=== PATIENT | male | born 1995 | race Caucasian/White ===

== ENCOUNTER 2017-11-28 21:58 | Emergency (ER) | payer OTHER ==
[~2017-11-28] VITALS: Ht 182.9 cm; Wt 69.0 kg
[2017-11-28] MEDS ORDERED: FIORICET 50-301 EAC1 PO (23:22)
[2017-11-28 23:26] VITALS: BP 122/67
== END 2017-11-28 23:27 | disposition home or self-care (01) ==
LOC: EME 21:58
DX: R51 Headache (principal); M25.562 Pain in left knee; G89.29 Other chronic pain; E11.9 Type 2 diabetes mellitus without complications; G43.909 Migraine, unspecified, not intractable, without status migrainosus; F17.200 Nicotine dependence, unspecified, uncomplicated
CPT/HCPCS: 73564; 99281; 99285; J3030